=== PATIENT | female | born 1990 | race Caucasian/White ===

== ENCOUNTER 2022-05-30 12:23 | Outpatient (RCR) | payer OTHER, SELFPAY ==
[2022-05-31] MEDS: RHO(D) IMMUNE GLOBULIN 300 MCG/2 ML SYRINGE IM (12:23)
== END 2022-08-28 23:59 | disposition home or self-care (01) ==
LOC: ANHLAB 12:23
PROVIDERS: PCP Internal Medicine; Visit Provider Obstetrics & Gynecology
DX: O20.0 Threatened abortion (principal); Z29.13 Encounter for prophylactic Rho(D) immune globulin; O36.0190 Maternal care for anti-D [Rh] antibodies, unspecified trimester, not applicable or unspecified; Z3A.00 Weeks of gestation of pregnancy not specified
CPT/HCPCS: 36415; 85461; 86850; 86900; 86901; 90384; 96372; J2790

== ENCOUNTER → 2022-06-12 10:30 | Outpatient (CLI) | payer OTHER, SELFPAY ==
--- NOTE | ~2022-06-12 | US_ITS ---
EXAMINATION: US OB <= 14 weeks fetus DATE: 06/12/2022 11:52 INDICATION: First trimester viability assessment TECHNIQUE: Real-time pelvic transabdominal and transvaginal ultrasound was performed. COMPARISON: None. FINDINGS: The uterus measures 10.9 x 7.2 x 8.4 cm. There is an intrauterine gestational sac. A yolk sac is identified. heart motion is identified measuring 176 beats per minute (bpm) by M-mode Do ppler. The crown rump length measures 2.2 cm, which correlates with an estimated gestational ag e of 8 weeks and 6 day(s) (+/-) 6 day(s). The right ovary measures 3.9 x 3.4 x 3.8 cm. The left ovary measures 2.1 x 1.1 x 2.5 cm. There is no free fluid in the pelvis. IMPRESSION: 1. Live intrauterine with an estimated gestational age of 8 weeks and 6 day(s) (+/-) 6 day( s) and an estimated delivery date of 01/16/2023. Reviewed, dictated and finalized at location F. [employer] IMPRESSION: 1. Live intrauterine with an estimated gestational age of 8 weeks and 6 day(s) (+/-) 6 day(s) and an estimated delivery date of 01/16/2023.
== END ==
PROVIDERS: PCP Internal Medicine; Visit Provider Obstetrics & Gynecology
DX: O20.0 Threatened abortion (principal); Z3A.08 8 weeks gestation of pregnancy
CPT/HCPCS: 76801

== ENCOUNTER 2022-10-31 14:14 | Outpatient (RCR) | payer OTHER, SELFPAY ==
[2022-11-02] MEDS: RHO(D) IMMUNE GLOBULIN 300 MCG/2 ML SYRINGE IM (16:34)
== END 2023-01-29 23:59 | disposition home or self-care (01) ==
LOC: ANHLAB 14:14
PROVIDERS: PCP Internal Medicine; Visit Provider Obstetrics & Gynecology
DX: O36.0190 Maternal care for anti-D [Rh] antibodies, unspecified trimester, not applicable or unspecified (principal); Z3A.00 Weeks of gestation of pregnancy not specified
CPT/HCPCS: 36415; 85461; 86850; 86900; 86901; 90384; 96372; J2790

== ENCOUNTER 2023-01-15 18:23 | Outpatient (CLI) | payer OTHER, SELFPAY ==
--- NOTE | ~2023-01-15 | US_ITS ---
EXAMINATION: US OB limited w BPP DATE: 01/15/2023 21:40 CDT INDICATION: Evaluate amniotic fluid and well-being TECHNIQUE: Real-time transabdominal obstetric ultrasound. FINDINGS: No prior studies for comparison. There is a single living fetus in vertex presentation. The placenta is anterior. cardiac activ ity and movement is noted with a heart rate of 159 beats per minute. Biophysical profile: breathin of 2 movement: 2 of 2 tone: 2 of 2 Amniotic flud pocket: 2 of 2 Total score: 8 of 8 JARAD is normal measuring 12.6 cm. IMPRESSION: 1. Single living intrauterine in vertex presentation. 2: Total biophysical profile score of 8/8. 3: Normal JARAD measures 12.6 cm. Reviewed, dictated and finalized at location A.
== END 2023-01-15 21:40 | disposition home or self-care (01) ==
LOC: ANHOBOP 18:50 → ANHLDR 19:04
PROVIDERS: PCP Internal Medicine; Visit Provider Obstetrics & Gynecology
DX: O42.90 Premature rupture of membranes, unspecified as to length of time between rupture and onset of labor, unspecified weeks of gestation (principal); Z3A.00 Weeks of gestation of pregnancy not specified
CPT/HCPCS: 59025; 76815; 76819; 99199

== ENCOUNTER 2023-01-16 07:30 | Inpatient (IN) | payer OTHER, SELFPAY ==
[2023-01-16] VITALS (153 sets, daily range): BP systolic 68–156; BP diastolic 35–128; PULSE 25–190; RESP 18; TEMP 36.1–36.9; O2SAT 83–100; BMI 34.4
--- NOTE | 2023-01-16 07:30 | LDADM ---
This patient, Enid Bush, was admitted to Labor/Delivery/Recovery 106 on 01/16/23 at 07:30. Plans for labor, pain management and were discussed with patient. Patient/family oriented to hospital policies and general routines including ID bracelet, bed and alarms, visiting hours, pain management, procedures, bathroom and other care routines, personal items, smoking policy, room service/diet and guest tray routines, security routines, and visiting hours. Patient/Family are encouraged to report perceived risks to care and to ask questions if they do not understand what they are told or what they should do. See OBIX for further documentation.
[2023-01-16 08:32] LABS: Basophils Absolute Auto 0.1 K/mm3 (0.0-0.1); Basophils Percent Auto 0.5 % (0.2-1.2); Eosinophils Percent Auto 0.2 % (0-4.4); Hematocrit 40.4 % (37.0-47.0); Hemoglobin 13.6 g/dL (12.0-15.0); Immature Granulocyte Absolute 0.45 K/mm3 (0.00-0.031); Immature Granulocyte Percent A 2.7 % (0-0.5); Lymphocytes Absolute Auto 1.94 K/mm3 (0.9-3.2); Lymphocytes Percent Auto 11.7 % (18.3-44.2); Mean Corpuscular HGB Conc 33.7 g/dl (32-36); Mean Corpuscular Hemoglobin 30.3 pg (26-34); Mean Platelet Volume 10.6 fl (7.4-10.4); Monocytes Absolute Auto 0.6 K/mm3 (0.1-0.6); Monocytes Percent Auto 3.5 % (2.6-8.5); Neutrophils Absolute Auto 13.4 K/mm3 (1.3-6.7); Neutrophils Percent Auto 81.4 % (45.5-73.1); Platelet Count Result 253 k/mm3 (150-375); Red Blood Count 4.49 M/mm3 (4.2-5.4); Red Cell Distribution Width 13.2 % (11.5-14.5); White Blood Count 16.5 K/mm3 (4.5-10.0)
[2023-01-16] MEDS: LACTATED RINGERS 1,000 ML 125 ML IV CONT ×2 (08:33→09:36)
--- NOTE | 2023-01-16 09:16 | WPDANESEPP ---
Anes - Eval Pre Procedure Procedure: Labor Epidural Date/Time: 01/16/23 09:16 Surgeon: Lilian Preop Diagnosis: Labor Pain Pre Op Diagnosis: iol Patient Data Age: 32 Gender: F Height: 1.78 m Weight: 109 kg Last Vital Signs Pulse 82 01/16/23 08:45 BP 124/75 01/16/23 08:45 Allergies Allergy/AdvReac Type Severity Reaction Status Date / Time No Known Allergies Allergy Verified 05/31/22 12:23 Home Medications Medication Instructions Recorded Confirmed Type levothyroxine 150 mcg tablet 150 mcg PO DAILY 01/01/23 01/01/23 History prenat.vits,elaine,[id number] 1 tablet 01/01/23 History Laboratory Tests 01/16/23 08:21 WBC 16.5 H K/mm3 (4.5-10.0) RBC 4.49 M/mm3 (4.2-5.4) Hgb 13.6 g/dL (12.0-15.0) Hct 40.4 % (37.0-47.0) MCV 90.0 fl (80-100) MCH 30.3 pg (26-34) MCHC 33.7 g/dl (32-36) RDW 13.2 % (11.5-14.5) Plt Count 253 k/mm3 (150-375) MPV 10.6 H fl (7.4-10.4) Immature Gran % (Auto) 2.7 H % (0-0.5) Neut % (Auto) 81.4 H % (45.5-73.1) Lymph % (Auto) 11.7 L % (18.3-44.2) [place] % (Auto) 3.5 % (2.6-8.5) Eos % (Auto) 0.2 % (0-4.4) Baso % (Auto) 0.5 % (0.2-1.2) Lymph # (Auto) 1.94 K/mm3 (0.9-3.2) [place] # (Auto) 0.6 K/mm3 (0.1-0.6) Eos # (Auto) 0.0 K/mm3 (0-0.3) Baso # (Auto) 0.1 K/mm3 (0.0-0.1) Abs Immat Gran (auto) 0.45 H K/mm3 (0.00-0.031) Absolute Neuts (auto) 13.4 H K/mm3 (1.3-6.7) Absolute Nucleated RBC 0.0 K/mm3 (0.0-0.012) Nucleated RBC % 0.0 % (0.0-0.2) RPR Pending HIV 1&2 Ab/P24 Ag 4thGn Pending : gestational age (HARSHAD 01/23/23, ) HCG: negative Patient hx anesthesia problems: none Family hx anesthesia problems: none Results Review: All pre-operative results and documents have been reviewed as part of the pre-operative evaluation. [facility] Family History Family History Other Patient denies significant medical history Social History Social History Smoking status: Never smoker Substance use: never Lack of Transportation: No Lack of Food: Never True Current Housing: I Have Housing Concerned About Future Housing: No Difficulty Paying Gas/Electric Bills: No Difficulty Paying for Meds: No Currently Unemployed: No Education: Master's Degree or Higher Difficulty w/ Childcare or Family Care: No Spiritual care concerns: No Exam Day of Procedure 01/16/23 09:16 Patient weight: normal Heart: regular rate and rhythm Lungs: normal air movement Airway: Mallampati scale class II Neurological: alert and oriented
[2023-01-16 09:24] LABS: HIV 1/2 Ab P24 Ag Result Negative (Negative)
[2023-01-16] MEDS: OXYTOCIN 30 UNITS/NS 500 ML 30 UNITS/500 ML BAG IV CONT (10:44)
--- NOTE | 2023-01-16 11:47 | PM.IMHP ---
H&P: HPI History of Present Illness Date/Time: 01/16/23 11:47 Chief Complaint: Labor at term Narrative: this is a 32-year-old 2 para 0 whose last menstrual period was 04/16/2022, EDC is 01/21/2023, confirmed by 6 week ultrasound presents at 39+ weeks gestation in active labor. She was seen last night with some spotting following an exam had an ultrasound with the 01/28 biophysical profile and normal fluid. She came in this morning at 4cm. She spontaneously ruptured on admission. had been uncomplicated with negative group B strep she is hypothyroid. She is euthyroid on levothyroxine. She is Rh negative and received RhoGAM at 28 weeks [facility] Family History Family History Other Patient denies significant medical history Social History Social History Smoking status: Never smoker Substance use: never Lack of Transportation: No Lack of Food: Never True Current Housing: I Have Housing Concerned About Future Housing: No Difficulty Paying Gas/Electric Bills: No Difficulty Paying for Meds: No Currently Unemployed: No Education: Master's Degree or Higher Difficulty w/ Childcare or Family Care: No Spiritual care concerns: No Meds Home Medications and Allergies Home Medications Medication Instructions Recorded Confirmed Type levothyroxine 150 mcg tablet 150 mcg PO DAILY 01/01/23 01/01/23 History prenat.vits,elaine,[id number]-[id number]-vmpwt 1 tablet 01/01/23 History Allergies Allergy/AdvReac Type Severity Reaction Status Date / Time No Known Allergies Allergy Verified 05/31/22 12:23 Vital Signs Vital Signs - 24 hr 01/16/23 08:00 01/16/23 08:32 01/16/23 08:45 Temperature Pulse Rate 93 100 82 Blood Pressure 119/77 116/79 124/75 Pulse Oximetry 01/16/23 09:18 01/16/23 09:19 01/16/23 09:21 Temperature Pulse Rate 98 90 Blood Pressure 145/121 H 146/83 H Pulse Oximetry 99 01/16/23 09:23 01/16/23 09:26 01/16/23 09:28 Temperature Pulse Rate 103 H 90 Blood Pressure 122/72 127/82 Pulse Oximetry 98 98 01/16/23 09:30 01/16/23 09:33 01/16/23 09:36 Temperature Pulse Rate 91 91 95 Blood Pressure 118/98 H 133/79 124/70 Pulse Oximetry 98 01/16/23 09:38 01/16/23 09:39 01/16/23 09:42 Temperature Pulse Rate 102 H 120 H Blood Pressure 108/72 132/69 Pulse Oximetry 98 01/16/23 09:43 01/16/23 09:45 01/16/23 09:48 Temperature Pulse Rate 108 H 93 Blood Pressure 121/73 117/74 Pulse Oximetry 98 98 01/16/23 09:51 01/16/23 09:53 01/16/23 09:54 Temperature Pulse Rate 85 111 H Blood Pressure 124/74 109/66 Pulse Oximetry 98 01/16/23 09:57 01/16/23 09:58 01/16/23 10:00 Temperature Pulse Rate 71 147 H Blood Pressure 127/65 120/75 Pulse Oximetry 98 01/16/23 10:03 01/16/23 10:08 01/16/23 10:13 Temperature Pulse Rate Blood Pressure Pulse Oximetry 98 97 98 01/16/23 10:15 01/16/23 10:18 01/16/23 10:23 Temperature Pulse Rate 75 Blood Pressure 116/60 Pulse Oximetry 97 98 01/16/23 10:28 01/16/23 10:30 01/16/23 10:33 Temperature Pulse Rate 81 Blood Pressure 110/58 L Pulse Oximetry 97 98 01/16/23 10:38 01/16/23 10:43 01/16/23 10:45 Temperature 96.9 F L Pulse Rate Blood Pressure 120/80 Pulse Oximetry 99 99 01/16/23 10:48 01/16/23 10:53 01/16/23 10:58 Temperature Pulse Rate Blood Pressure Pulse Oximetry 99 99 99 01/16/23 11:00 01/16/23 11:03 01/16/23 11:08 Temperature Pulse Rate 80 Blood Pressure 109/54 L Pulse Oximetry 99 98 01/16/23 11:13 01/16/23 11:15 01/16/23 11:18 Temperature Pulse Rate 79 Blood Pressure 104/59 L Pulse Oximetry 96 97 01/16/23 11:23 01/16/23 11:28 01/16/23 11:30 Temperature Pulse Rate 69 Blood Pressure 112/56 L Pulse Oximetry 96 96 01/16/23 11:33
--- NOTE | 2023-01-16 16:28 | PM.OBPRVD ---
OB - Delivery Note Procedure Delivery date: 01/16/23 Induction method: None Delivery monitor: External FHT Route of delivery: Episiotomy description: None Laceration Description: Perineal - 2nd Degree Quantitative Blood Loss (ml): 160 Anesthesia type: Epidural Disposition: Floor Baby Date of : 01/16/23 Time of : 16:09 Weeks of gestation at delivery: 39 Infant gender: Male presentation: vertex position: Right Occiput Anterior Placenta delivery description: Spontaneous Cord Vessel Description: 3 Vessels score one minute: 8 score five minutes: 9
--- NOTE | 2023-01-16 16:30 | PM.DS ---
DS: Admitting Diagnosis Discharge Date 01/18/2023 Admitting Diagnosis term DS: Discharge Diagnosis Discharge Diagnosis (1) Term : Code(s): Z34.90 - Encounter for supervision of normal , unspecified, unspecified trimester Status: Acute DS: Summary Hospital Course Reason for hospitalization: patient was admitted in active labor at term Hospital Course: patient underwent spontaneous vaginal delivery on 01/09. Her hospital course. Was unremarkable. She remained afebrile. She was up, voiding without difficulty, ambulating, generally without complaints. . Time Spent with Patient Time attestation: Total time spent providing and/or coordinating discharge services: Exam Const: General: cooperative, healthy appearing and comfortable Nutritional Appearance: average body habitus Orientation/consciousness: oriented to person, oriented to place and oriented to time Resp: Effort & Inspection: normal respiratory effort Cardio: Rate: regular rate Rhythm: regular rhythm Heart sounds: S1 normal heart sound present and S2 normal heart sound present GI: Inspection: normal to inspection ( Fundus firm below the umbilicus) DS: Data Data Completed and Pending Labs on day of discharge: Labs from last 24 hours 01/16/23 08:21 WBC 16.5 H RBC 4.49 Hgb 13.6 Hct 40.4 MCV 90.0 MCH 30.3 MCHC 33.7 RDW 13.2 Plt Count 253 MPV 10.6 H Immature Gran % (Auto) 2.7 H Neut % (Auto) 81.4 H Lymph % (Auto) 11.7 L [place] % (Auto) 3.5 Eos % (Auto) 0.2 Baso % (Auto) 0.5 Lymph # (Auto) 1.94 [place] # (Auto) 0.6 Eos # (Auto) 0.0 Baso # (Auto) 0.1 Abs Immat Gran (auto) 0.45 H Absolute Neuts (auto) 13.4 H Absolute Nucleated RBC 0.0 Nucleated RBC % 0.0 RPR Pending HIV 1&2 Ab/P24 Ag 4thGn Negative Blood Type A Negative Antibody Screen Positive Antibody Identification Passive Due to RH Imm Glob Antigen Identification Cancelled JONNY, IgG Interpret Not Performed JONNY, Poly Interpret Neg JONNY, Complement Interp Not Performed Discharge Plan Discharge Attending physician on discharge: Mateus Cheney Discharging Clinician: Mateus Cheney Patient Disposition: Home, Self-Care Activity: may shower and pelvic rest Diet: heart healthy Wound Care Instructions: follow printed instructions Patient Instructions: Antibiotic Form Stand Alone Forms: General Discharge Information Follow-up/Referrals: Mateus Cheney MD [Physician] - Zoltan Quintana MD [Physician] - Discharge Medications: Continued levothyroxine 150 mcg Tablet 150 mcg PO DAILY #2 Tablet 1 tablet Date of admission: 01/16/23 07:30 Primary Care Provider: Xiomara,Rylee Villegas Admitting Provider: Zoltan Quintana Attending physician on admission: Zoltan Quintana Condition: Stable
[2023-01-16] MEDS: OXYTOCIN 30 UNITS/NS 500 ML 30 UNITS/500 ML BAG 125 UNITS IV CONT (16:48)
[2023-01-16] MEDS: IBUPROFEN 600 MG TABLET PO (19:08)
[2023-01-16] MEDS: WITCH HAZEL 40 PADS 1 PAD TOPICAL (19:24)
[2023-01-16] MEDS: BENZOCAINE 20% AER SPR (*SP) 56 GM CAN 1 SPRAY TOPICAL (19:24)
--- NOTE | 2023-01-16 19:41 | ADMGEN ---
This patient, Enid Bush, was admitted to OB 2nd Floor Room 292-00. Patient/family oriented to hospital policies and general routines including ID bracelet, bed and alarms, visiting hours, pain management, procedures, bathroom and other care routines, personal items, smoking policy, room service/diet, and visiting hours. Information on how to activate the Rapid Response Team has been discussed. Patient/Family are encouraged to report perceived risks to care and to ask questions if they do not understand what they are told or what they should do.
[2023-01-17 00:11] VITALS: BP 126/75; PULSE 75; RESP 18; TEMP 36.7
[2023-01-17] MEDS: IBUPROFEN 600 MG TABLET PO ×2 (04:15→13:40)
[2023-01-17 04:29] VITALS: BP 129/68; PULSE 78; RESP 18; TEMP 36.8
[2023-01-17 05:44] LABS: Hematocrit 36.4 % (37.0-47.0); Hemoglobin 11.9 g/dL (12.0-15.0)
[2023-01-17] MEDS: DOCUSATE SODIUM 100 MG CAPSULE PO (07:58)
[2023-01-17 08:35] VITALS: BP 126/75; PULSE 78; RESP 18; TEMP 36.6; O2SAT 99
--- NOTE | 2023-01-17 09:33 | PC.NURSE ---
[phone] Introductions were made, then consulted with patient to assess needs related to . Mother led the conversation with her?plans to feed?her infant and the?experience so far. Resources provided for inpatient and outpatient services with the mom/baby guide and name written on the white board. Encouraged [id number] and stimulation with infant to offer soon as infant is showing early feeding cues. Mother voiced understanding of information and will call if there is a request for assistance.
--- NOTE | 2023-01-17 09:34 | PM.OBPNVD ---
OB - PN: Subj Subjective Date/time seen: 01/17/23 09:34 Patient comments: no complaints and pain well controlled baby status: doing well OB - PN: Obj Data Labs 01/17/23 04:08 Labs: Laboratory Results - last 24 hr 01/16/23 01/17/23 08:21 04:08 Hgb 11.9 L Hct 36.4 L Blood Type A Negative Antibody Screen Positive Antibody Identification Passive Due to RH Imm Glob Antigen Identification Cancelled JONNY, IgG Interpret Not Performed JONNY, Poly Interpret Neg JONNY, Complement Interp Not Performed OB - PN A/P Plan day: 1 Plan: routine care Time Spent With Patient Time: Total time spent is greater than 50% in coordination of care (as documented) at patient's floor/unit and/or counseling patient: Time with patient: less than 15 minutes Exam Const: General: cooperative, healthy appearing and comfortable Nutritional Appearance: average body habitus Orientation/consciousness: oriented to person, oriented to place and oriented to time HENMT: Head: normal to inspection Resp: Effort & Inspection: normal respiratory effort Cardio: Rate: regular rate Rhythm: regular rhythm Heart sounds: S1 normal heart sound present and S2 normal heart sound present GI: Inspection: normal to inspection (fundus firm)
--- NOTE | 2023-01-17 11:45 | PC.NURSE ---
[phone] Consulted with patient to assess needs related to after call requested. Mother led conversation with her experience with feeding baby so far. Mother works well with her infant. Reviewed working with , supporting breast and how to protect the nipples with an optimal deep latch, good positioning, and good hand washing. Encouraged understanding the benefits of skin to skin, responding to feeding cues, frequencies of feeding 8-12 times in 24 hours (approximately 2-3 hours), duration of feedings, milk production, intake/output feeding sheet and signs of adequate intake encouraging swallowing at the breast. Reviewed positioning and alignment, supporting breast, off-centered (asymmetrical latch) and leading with the chin with big, open, wide gape. latched optimally to the left breast in cross cradle position. Education given to mother of how to visualize suck/swallow and listening for drinking at the breast. was able to maintain latch without discomfort to mother. Mother encouraged to keep actively after circumcision. Nipple care reviewed with optimal latch, good positioning and using clean hands when feeding her and touching her breast. Mother is confident with latching her infant to the right breast independently. Resources used to facilitate learning were used from the tool, mom and baby guide. Mother voiced understanding of the education shared, to call for assistance if the does not latch or if there is discomfort with .
[2023-01-17 12:14] VITALS: BP 123/71; PULSE 74; RESP 16; TEMP 36.8; O2SAT 99
[2023-01-17 17:06] LABS: Rapid Plasma Reagin Non-Reactive (NonReactive)
[2023-01-17 21:10] VITALS: BP 123/70; PULSE 83; RESP 18; TEMP 36.7; O2SAT 98
--- NOTE | 2023-01-18 03:51 | PM.OBPNVD ---
OB - PN: Subj Subjective Date/time seen: 01/18/23 03:51 Patient comments: no complaints and pain well controlled baby status: doing well and nursing well OB - PN: Obj Data Labs 01/17/23 04:08 Labs: Laboratory Results - last 24 hr 01/16/23 01/17/23 08:21 04:08 Hgb 11.9 L Hct 36.4 L RPR Non-reactive OB - PN A/P Plan day: 2 Plan: routine care, discharge home and follow up 6 weeks Time Spent With Patient Time: Total time spent is greater than 50% in coordination of care (as documented) at patient's floor/unit and/or counseling patient: Time with patient: less than 15 minutes Exam Const: General: cooperative, healthy appearing and comfortable Nutritional Appearance: average body habitus Orientation/consciousness: oriented to person, oriented to place and oriented to time HENMT: Head: normal to inspection Resp: Effort & Inspection: normal respiratory effort Cardio: Rate: regular rate Rhythm: regular rhythm Heart sounds: S1 normal heart sound present and S2 normal heart sound present GI: Inspection: normal to inspection ( fundus firm below the umbilicus)
[2023-01-18 08:00] VITALS: BP 127/74; PULSE 92; RESP 16; TEMP 36.7; O2SAT 100
[2023-01-18] MEDS: DOCUSATE SODIUM 100 MG CAPSULE PO (10:03)
--- NOTE | 2023-01-18 11:08 | PC.NURSE ---
1000-Patient viewed the discharge video Mother & Baby Care, The First Two Weeks . Patient was given the opportunity and encouraged to ask questions. Patient verbalized understanding of information shared and has been given the mother/baby guide for home reference.
[2023-01-20 11:16] VITALS: BP 117/86; PULSE 78; RESP 18; TEMP 37.1; O2SAT 100
== END 2023-01-18 11:12 | disposition home or self-care (01) | DRG 807 ==
LOC: ANHLDR 16:33 → ANHOB2 01-18 09:51 → ANHLDR 01-20 13:58 → ANHOB2 01-20 13:58
PROVIDERS: Admitting Provider Obstetrics & Gynecology; PCP Internal Medicine; Visit Provider Obstetrics & Gynecology
DX: O99.284 Endocrine, nutritional and metabolic diseases complicating childbirth (principal); Z37.0 Single live birth; Z3A.39 39 weeks gestation of pregnancy; E03.9 Hypothyroidism, unspecified; O70.1 Second degree perineal laceration during delivery; O26.893 Other specified pregnancy related conditions, third trimester; Z67.91 Unspecified blood type, Rh negative
CPT/HCPCS: 36415; 85014; 85018; 85025; 86592; 86703; 86850; 86880; 86900; 86901; A9270; G0432; J2590; J2795; J7120

== ENCOUNTER 2024-10-29 15:26 | Outpatient (RCR) | payer OTHER, SELFPAY ==
--- OUTSIDE RECORDS SUMMARY | 2024-10-29 15:31 | XMS_ITS | Clinical Summary ---
Author Organization [facility] Address [facility] [place] [address] Care Team Providers Care Assembly Detailer Name Role Phone Rylee Mesa MD Primary Care Provider [phone] Allergies No known active allergies Medications FLUoxetine (PROZAC) 20 MG tablet Take 1 tablet (20 mg total) by mouth daily. 4 Active levothyroxine (SYNTHROID) 150 MCG tabletIndications:Hy pothyroidism, postradioiodine therapy Take 1 tablet (150 mcg total) by mouth daily. 30 tablet 5 4 Active Active Problems Problem Noted Date Diagnosed Date Hypothyroidism, postradioiodine therapy 03/28/20 17 History of Graves' disease 03/22/2016 Comments Yes Encounters Date Type Department Care Team Description 10/26/2024 3:10 PM CDT - 10/26/2024 11:59 PM CDT Hospital Encounter [facility] [address] [place] [address] Melody Cisneros MD Arrived Discharge Disposition: Home or Self Care (Routine Discharge) 10/26/2024 Results Follow-Up [facility] Diabetes and Endocrinology - [address] [phone] Melody Cisneros MD THYROID STIM HORMONE TSH 10/26/2024 Travel 10/25/2024 Telephone [facility] Diabetes [facility] Endocrinology [address] [phone] Melody Cisneros MD Lab Order from Last 3 Months Immunizations Immunization Administration Dates Next Due MODERNA COVID-19 (12+) MRNA, LNP-S, PF, 100 MCG/ 0.5 ML DOSE 08/11/2020,07/14/2020 Family History Medical History Relation Comments Thyroid Disease Maternal Grandmother Goiter Mother Relation Status Comments Maternal Grandmother Mother Social History Tobacco Use Types Packs/Day Years Used Date Smoking Tobacco: Never Smokeless Tobacco: Never Alcohol Use Standard Drinks/Week Comments Yes 0 (1 standard drink = 0.6 oz pur e alcohol) PHQ-2 Answer Date Recorded PHQ-2 Score - If the patient scores above 3, please move on to questions 3-9 0 02/16/2021 Comments Yes Sex and Gender Information Value Date Recorded Sex Assigned at Female 07/08/2024 3:12 PM [employer] Legal Sex Female 7:25 PM CDT Gender Identity Not on file Sexual Orientation Not on file Last Filed Vital Signs Vital Sign Reading Time Taken Comments Blood Pressure 108/74 02/07/2023 10:55 AM CDT Pulse 76 02/07/2023 10:55 AM CDT Temperature 36.5 C (97.7 F) 02/07/2023 10:55 AM CDT Respiratory Rate 16 06/01/2021 9:58 AM [employer] Oxygen Saturation 98% 02/07/2023 10:55 AM CDT Inhaled Oxygen Concentration - - Weight 93.4 kg (206 lb) 02/07/2023 10:55 AM CDT Height 175.3 cm (5' 9) 02/07/2023 10:55 AM CDT Body Mass Index 30.42 02/07/2023 10:55 AM CDT Plan of Treatment Health Maintenance Due Date Last Done Comments Cervical Cancer Screening Pap Smear (Age 30 to 64) Every 3 Years 1990 Annual Physical 1993 HPV Vaccines (3 - 3-dose series) 11/21/2008 08/29/2008, 04/13/2008 Hepatitis C 2008 DTaP, Tdap and Td Vaccines (1 - Tdap) 2009 10/10/1995, 06/09/1992, 06/11/1991, Additional history exists Hepatitis B Vaccines (1 of 3 - 19+ 3-dose series) 2009 Cervical Cancer Screening Pap with HPV Testing (Age 30 to 64) Every 5 Years 2020 Cervical Cancer Screening with HPV 2020 COVID-19 Vaccine ( season) 2024 08/11/2020, 07/14/2020 PHQ-2 (Physician [place]) 06/23/2024 RSV Immunization or 60+ Years (1 - 1-dose 75+ series) 2065 Meningococcal B Vaccine Aged Out No l onger eligible based on patient's age to complete this topic Meningococcal Vaccine Aged Out No nadia angela eligible based on patient's age to complete this topic Pneumococcal Vaccine: Pediatrics (0 to 5 Years) and At-Risk Patients (6 to 49 Years) Aged Out No longer eligible based on patient's age to complete this topic RSV Immunizations Under 20 Months Aged Out No longer eligible based on patient's age to complete this topic Procedures Procedure Name Priority Date/Time Associated Diagnosis Comments THYROID STIM HORMONE TSH Routine 10/26/2024 3:13 PM CDT Hypothyroidism, postradioiodine therapy from Last 3 Months Results * THYROID STIM HORMONE TSH (10/26/2024 3:13 PM CDT) TSH 2.475 0.358 - 3.74 uIU/ML 10/26/2024 4:37 PM CDT [facility] Comment: HIGH DOSES OF BIOTIN MAY INTERFERE WITH THIS TEST RESULT. CORRELATION TO CLINICAL HISTORY AND PRESENTATION RECOMMENDED. 10/26/2024 3:13 PM CDT us Melody Cisneros MD LABORATORY Final Result [facility] [address] [place] [address], [place] [phone] from Last 3 Months Insurance [employer] Advance Directives * Full Code (Latest Code Status on File) Date Activated Date Inactivated Comments 06/01/2021 8:28 AM 06/01/2021 12:26 PM Care Teams Assembly Detailer Relationship Specialty [place] [address] [place] [address] PCP - General INTERNAL MEDICINE 01/14/20
[2024-11-01] MEDS: RHO(D) IMMUNE GLOBULIN 300 MCG/2 ML SYRINGE IM (15:55)
== END 2025-01-27 23:59 | disposition home or self-care (01) ==
LOC: ANHLAB 15:26
PROVIDERS: PCP Internal Medicine; Visit Provider Obstetrics & Gynecology
DX: Z29.13 Encounter for prophylactic Rho(D) immune globulin (principal); O36.0190 Maternal care for anti-D [Rh] antibodies, unspecified trimester, not applicable or unspecified; Z3A.00 Weeks of gestation of pregnancy not specified
CPT/HCPCS: 36415; 85461; 86850; 86900; 86901; 90384; 96372; J2790

== ENCOUNTER 2025-01-16 16:55 | Inpatient (IN) | payer OTHER, SELFPAY ==
[2025-01-16] VITALS (36 sets, daily range): BP systolic 98–128; BP diastolic 35–78; PULSE 56–232; RESP 16; TEMP 36.5–36.6; O2SAT 81–100
--- OUTSIDE RECORDS SUMMARY | 2025-01-16 17:14 | XMS_ITS | Clinical Summary ---
Author Organization [facility] Address [facility] [place] [address] Care Team Providers Care Stage Settings Painter Name Role Phone Rylee Mesa MD Primary Care Provider +1- [phone] Allergies No known active allergies Medications FLUoxetine (PROZAC) 20 MG tablet Take 1 tablet (20 mg total) by mouth daily. 4 Active levothyroxine (SYNTHROID) 125 MCG tabletIndications:H ypothyroidism, postradioiodine therapy Take 1 tablet (125 mcg total) by mouth every morning. 30 tablet 3 5 Active levothyroxine (SYNTHROID) 175 MCG tabletIndications:H ypothyroidism, postradioiodine therapy Take 1 tablet (175 mcg total) by mouth every morning. 30 tablet 1 5 01/07/20 25 Discontin ued(Reord er) Active Problems Problem Noted Date Diagnosed Date Hypothyroidism, postradioiodine therapy 03/28/20 17 History of Graves' disease 03/22/2016 Comments Yes Encounters Date Type Department Care Team Description 01/05/2025 MyChart Message Enc [facility] Diabetes and Endocrinology - [address] [address] Melody Cisneros MD Levothyroxine 125 Refill 12/25/[address] [place] [address] Debra Rodrigues FNP Error 12/07/2024 4:13 PM CDT - 12/07/2024 11:59 PM CDT Hospital Encounter [facility] [address] [place] [address] Melody Cisneros MD Discharge Disposition: Home or Self Care (Routine Discharge) 12/07/2024 Results Follow-Up [facility] - [address] [address] Melody Cisneros MD TSH W/REFLEX, THYROXINE, FREE (FT4) 12/07/2024 Travel 10/26/2024 3:10 PM CDT - 10/26/2024 11:59 PM CDT Hospital Encounter [facility] [address] [place] [address] Melody Cisneros MD Discharge Disposition: Home or Self Care (Routine Discharge) 10/26/2024 Results Follow-Up [facility] - [address] [address] Melody Cisneros MD THYROID STIM HORMONE TSH 10/26/2024 Travel 10/25/2024 Telephone [facility] [address] [address] Melody Cisneros MD Lab Order from Last [...] Sex Assigned at Female 07/08/2024 3:12 PM MEDICAL PHOTOGRAPHER Legal Sex Female 7:25 PM CDT Gender Identity Not on file Sexual Orientation Not on file Last Filed Vital Signs Vital Sign Reading Time Taken Comments Blood Pressure 108/74 02/07/2023 10:55 AM CDT Pulse 76 02/07/2023 10:55 AM CDT Temperature 36.5 C (97.7 F) 02/07/2023 10:55 AM CDT Respiratory Rate 16 06/01/2021 9:58 AM MEDICAL PHOTOGRAPHER Oxygen Saturation 98% 02/07/2023 10:55 AM CDT Inhaled Oxygen Concentration - - Weight 93.4 kg (206 lb) 02/07/2023 10:55 AM CDT Height 175.3 cm (5' 9) 02/07/2023 10:55 AM CDT Body Mass Index 30.42 02/07/2023 10:55 AM CDT Plan of Treatment Upcoming Encounters Date Type Department Care Team (Late st Contact Info) Description 02/07/2025 9:40 AM CDT Office Visit [facility] [address] [place], [place] [id number] Debra Rodrigues [facility] [address] [place] [address] Health Maintenance Due Date Last Done Comments [...] Cancer Screening with HPV 2020 COVID-19 Vaccine (3 - 2023- season) 2024 08/11/2020, 07/14/2020 PHQ-2 (Physician [place]) 06/23/2024 RSV Immunization or 60+ Years (1 [...] Procedure Name Priority Date/Time Associated Diagnosis Comments THYROXINE, FREE (FT4) Routine 12/07/2024 4:15 PM CDT TSH W/REFLEX Routine 12/07/2024 4:15 PM CDT Hypothyroidism during , antepartum (HHS/HCC) THYROID STIM HORMONE TSH Routine 10/26/2024 3:13 PM CDT Hypothyroidism, postradioiodine therapy from Last 3 Months Results * (ABNORMAL) TSH W/REFLEX (12/07/2024 4:15 PM CDT) TSH 5.841(H) 0.358 - 3.74 uIU/ML 12/07/2024 5:16 PM CDT [facility] Comment: HIGH DOSES OF BIOTIN MAY INTERFERE WITH THIS TEST RESULT. CORRELATION TO CLINICAL HISTORY AND PRESENTATION RECOMMENDED. 12/07/2024 4:15 PM CDT us Melody Cisneros MD LABORATORY Final Result [facility] [address] [place] [address], * THYROXINE, FREE (FT4) (12/07/2024 4:15 PM CDT) FREE T4 1.01 0.76 - 1.46 NG/DL 12/07/2024 6:05 PM CDT [facility] 12/07/2024 4:15 PM CDT Melody Cisneros MD LABORATORY Final Result Performing Organization Address City/[facility]/ZIP Co de Phone Number [facility] [address] [place] [address], [place] [phone] * THYROID STIM HORMONE TSH (10/26/2024 3:13 PM CDT) TSH 2.475 0.358 - 3.74 uIU/ML 10/26/2024 4:37 PM CDT [facility] Comment: HIGH DOSES OF BIOTIN MAY INTERFERE WITH THIS TEST RESULT. CORRELATION TO CLINICAL HISTORY AND PRESENTATION RECOMMENDED. 10/26/2024 3:13 PM CDT Melody Cisneros MD LABORATORY Final Result Performing Organization Address [facility] Co de Phone Number [facility] [address] [place] [address], [place] [phone] from Last 3 Months Insurance [employer] Advance Directives * Full Code (Latest Code Status on File) Date Activated Date Inactivated Comments 06/01/2021 8:28 AM 06/01/2021 12:26 PM Care Teams Stage Settings Painter Relationship Specialty [place] [address] [place] [address] PCP - General INTERNAL MEDICINE 01/14/20
--- OUTSIDE RECORDS SUMMARY | 2025-01-16 17:14 | XMS_ITS | Data Portability ---
Author Organization [facility], [address] [facility] ([place]) Address [address] [place] [address] Care Team Providers Care Ep Technologist Name Role Phone RONALD REYES Primary Care Provider Assessment Encounter Date Assessment Date Assessment LastModified by Organization Details LastModified Time 12/13/2024 12/13/2024 1. She is given Tdap booster. Vitals were good today. 2. Form was filled out and a copy For the records. 3. 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 4. She has establish care appointment with new PCP in a couple weeks. We can get records transferred upon request. Patient verbalizes understanding and agreement with the treatment plan. Patient will continue to follow-up for acute health issues and routine medication checks. I personally spent a total of 20 minutes on the patient on this date of service including both hhza-ij-qarg and hjb-lncc-gf-face time excluding any separately reportable services. [email or web address] Not available 12/15/2024 10:05:30 Plan of Treatment Reminders Order Date Submit Date Provider Last Modified By Organization Details Last Modified Time Details Appointments None record ed. Lab None record ed. Referral None record ed. Procedures None record ed. Surgeries None record ed. Imaging None record ed. Medication Orders None record ed. Patient TargetsNo targets recorded. Patient InstructionsNo instructions recorded. Reason for Referral None Reported. Problems Name Problem SNOMED Code Status Onset Date Resolution Date Notes Provider Name and Address Organization Details Recorded Time Third trimester 07647778 Active 2024 Lalo Buck PA-C [address] [place] [address], [phone], [facility] 12:02:43 Graves' disease 085152584 Active 2024 Lalo Buck PA-C [address] [place] [address], [phone], [facility] 12:02:58 Acquired hypothyroid ism 306506061 Active 2024 Lalo Buck PA-C [address] [place] [address], [phone], [facility] 12:03:07 Problem Notes None recorded. Procedures Surgical History Date Name Laterality Status Provider Name and Address Organization Details Recorded Time dilation and curettage of uterus completed Lalo Buck PA-C [address] [place] [address], [phone], [facility] 12/13/2024 12:01:49 tonsillectomy and adenoidectomy completed Lalo Buck PA-C [address] [place] [address], [phone], [facility] 12/13/2024 12:02:06 tooth extraction completed Diana Buck PA-C [address] [place] [address], [phone] 12/13/2024 12:02:16 Imaging Results None recorded. Procedure Notes None recorded. Medical Equipment None Reported. Medications Name Sig Start Date Stop Date Status Note LastModified by Organization Details LastModified Time levothyroxine 175 mcg tablet Take 1 tablet every day by oral route. active Not Available Not Available No t Available ondansetron HCl 4 mg tablet TAKE 1 TABLET BY MOUTH EVERY 6 HOURS NEEDED FOR NAUSEA 12/13 completed Not Available Not Available Not Available levothyroxine 125 mcg tablet TAKE 1 TABLET BY MOUTH DAILY 12/13 completed Not Available Not Available Not Available triamcinolone acetonide 0.1 % topical ointment APPLY TO RASH TWICE DAILY FOR 2 WEEKS 12/13 completed Not Available Not Available Not Available sertraline 50 mg tablet TAKE 1 TABLET BY MOUTH DAILY 12/13 completed Not Available Not Available Not Available Vitals Date Recorded Body height Body temperature Heart rate Oxygen saturation Oxygen saturation in Arterial blood by Pulse oximetry Body mass index (BMI) Body weight Systolic And Diastolic Provider Name and Address Organization Details Last Updated DateTime 175.26 cm 97 [degF] 98 /min 98 % 98 % 33.2 kg/m2 146973. 28 g 112/68 mm[Hg] Tiara Nath [facility] 11:22:18 Social History None recorded. Functional Status None recorded. Mental Status None recorded. Family History Relationship Description Onset Age of this Age Resolved Age Notes LastModified by Organization Details LastModified Time Mother Goiter [email or web address] Not available 12/13/2024 12:01:18 Maternal Grandmother Hyperthyroid ism [email or web address] Not available 2024 12:01:27 Medical History No medical history recorded. Gynecological HistoryNo gynecological history recorded. Obstetrics History GPAL:G 0 P 0 0 0 0 Immunizations Vaccine Type Date Status Note Provider Nam e and Address Organization Details Recorded Time COVID-19, mRNA, LNP-S, PF, 100 mcg/0.5mL dose or 50 mcg/0.25mL dose 07/14/2020 completed Tiara Nath [facility] 12/13/2024 11:22:45 COVID-19, mRNA, LNP-S, PF, 100 mcg/0.5mL dose or 50 mcg/0.25mL dose 08/11/2020 ashok Nath [facility] 12/13/2024 11:22:45 Tdap 12/13/2024 completed Lalo Buck PA-C [facility] [address], [address], [facility] 12/13/2024 12:07:02 Past Encounters Encounter ID Performer Location Encounter Start Date Encounter Closed Date Diagnosis/Indication Diagnosis SNOMED-CT Code Diagnosis ICD10 Code Diagnosis Note [id number] Shady Buck PA-C [facility] ([place]) [address] [place] [place] [address] 12/13/2024 10:54:26 12/20/2024 17:33:33 [id number] Shady Buck PA-C [facility] ([place]) [address] [facility] [place] [address] 12/13/2024 11:11:00 12/13/2024 12:44:59 Vaccination needed 3486044780 42926 Z23 Third trim luis 60405384 Z34.93 Preventive procedure 169 752509 Z00.00 Health Concerns Section Related Observation LastModified by Organization Detai ls LastModified Time None Recorded Concern Status LastModified by Organization Details LastModified Time None Recorded Advance Directives Directive None Recorded Payers Insurance Date Sequence Insurance Name Policy Number Policy Paige Covered Member ID Paige Member ID Guarantor Name 12/17/2024 1 [employer] Matt Rehkemper [id number] 1 Enid E Rehkemper 12/17/2024 2 [employer] Enid E Rehkemper [id number] 1 Enid E Rehkemper Notes Date Note Type Note Provider Name and Address Organization Details Recorded Time 12/13/2024 text/html The patient comes in today for physical exam. This is a need for the [facility]. She has a form for us today. She is 35 weeks gestation. She follows with Dr. Quintana. She has not had any complicating factors to the . She has had her Synthroid dose adjusted twice during . She is starting the once weekly visits next week. They told her to get her Tdap vaccination. She has had laboratory work through her livestock slaughterer and compactor driver pretty frequently. She follows with endocrinology, . She has history of Graves' disease and had radioactive iodine ablation. She is now hypothyroid and is typically maintained at a dose of 125 mcg levothyroxine. She has been having frequent thyroid testing during . Her dose was just increased. She has moved to [place], [place]. She has an appointment with new primary care doctor in a couple weeks and she will be requesting records transfer. Baby is moving normally. Lalo Buck PA-C [address] [place] [address], [phone], [facility] 12/15/2024 10:05:44 OBGyn Episode No OBEpisode recorded.
--- OUTSIDE RECORDS SUMMARY | 2025-01-16 17:14 | XMS_ITS | Encounter Summary ---
Author Organization [facility] Address [address] [place] [address] Care Team Providers Care Continuity Director Name Role Phone Rylee Mesa MD Primary Care Provider +1- [phone] Encounter Details Date Type Department Care Team (Latest Contact Info) Description 12/07/2024 Results Follow-Up [facility] Medical Group Diabetes and Endocrinology - [address] [address] Melody Cisneros MD [address] [place] [phone] TSH W/REFLEX, THYROXINE, FREE (FT4) Social History Tobacco Use Types Packs/Day Years [...] Sex Assigned at Female 07/08/2024 3:12 PM GEOLOGIST Legal Sex Female 7:25 PM CDT Gender Identity Not on file Sexual Orientation Not on file documented as of this encounter Plan of Treatment Upcoming Encounters Date Type Department Care Team (Late st Contact Info) Description 02/07/2025 9:40 AM CDT Office Visit Count includes the [facility] [address] [place] [id number] Debra Rodrigues, COMBINATION BUILDING INSPECT[facility] [place] [address] documented as of this encounter Visit Diagnoses Diagnosis Hypothyroidism, postradioiodine therapy Other postablative hypothyroidism documented in this encounter Additional Health Concerns Assessment Noted Time PHQ-9 Depression Total Score: 0 02/17/20 21 9:25 AM CDT documented as of this encounter Care Teams Continuity Director Relationship Specialty [place] [address] [place] [address] PCP - General INTERNAL MEDICINE 01/14/20 documented as of this encounter
[2025-01-16] MEDS: fentaNYL CITRATE INJ (*CRX) 100 MCG/2 ML VIAL IV PUSH (17:42)
[2025-01-16] MEDS: OXYTOCIN 30 UNITS/NS 500 ML 30 UNITS/500 ML BAG 999 UNITS IV CONT (17:50)
[2025-01-16 18:16] LABS: Hematocrit 46.2 % (37.0-47.0); Hemoglobin 15.1 g/dL (12.0-15.0); Immature Granulocyte Percent A 2.1 % (0-0.5); Lymphocytes Absolute Auto 2.58 K/mm3 (0.9-3.2); Mean Corpuscular HGB Conc 32.7 g/dl (32-36); Mean Corpuscular Hemoglobin 30.1 pg (26-34); Mean Corpuscular Volume 92.0 fl (80-100); Nucleated Red Blood Cells Absolute Auto 0.000 K/mm3 (0.0-0.012); Nucleated Red Blood Cells Perc 0.0 % (0.0-0.2); Platelet Count Result 275 k/mm3 (150-375); Red Blood Count 5.02 M/mm3 (4.2-5.4); White Blood Count 15.9 K/mm3 (4.5-10.0)
--- NOTE | 2025-01-16 18:19 | WPDHPUPDATE1 ---
History and Physical Update Update Date/Time: 01/16/25 18:19 History and Physical has been reviewed, including an updated exam of the patient. There are NO changes in the patient's condition. Risks, benefits, and alternatives have been discussed and questions answered. Patient agrees to proceed with procedure.
--- NOTE | 2025-01-16 18:20 | WPDOBADMIT ---
Obstetrics - Admit Note Admission Note: record reviewed. No pertinent additions to the history and/or any subsequent changes in the physical findings that are not consistent with the expected course of the were found. Additions to the history and/or subsequent changes in the physical findings follow. None.
--- NOTE | 2025-01-16 18:20 | PM.OBPRVD ---
OB - Vaginal Delivery Note Procedure Delivery date: 01/16/25 Delivery monitor: External FHT and External Uterine Route of delivery: Episiotomy description: None Laceration Description: Perineal - 1st Degree Delivery repair: chromic Specimen: Yes Quantitative Blood Loss (ml): 500 Anesthesia type: Local Disposition: Floor Complications: No immediate complications Narrative: Patient prepped and draped usual manner for this procedure. Maternal expulsive efforts delivered vertex the rest of baby was delivered without difficulty. Cord clamped cut and placenta delivered spontaneously. Cervix vagina vulva were inspected with vaginal laceration which was approximated using 2-0 chromic in a running interlocking manner once injected with lidocaine. This was not bleeding and the uterus was well contracted. Immediate postoperative condition of mother baby were both excellent. Baby Gestational Age by Date: 40 gender: Male Weight (pounds): 10 Weight (ounces): 8 presentation: vertex Placenta delivery description: Spontaneous Cord Vessel Description: 3 Vessels
[2025-01-16] MEDS: OXYTOCIN 30 UNITS/NS 500 ML 30 UNITS/500 ML BAG 125 UNITS IV CONT (18:25)
[2025-01-16 18:54] LABS: Syphilis IgG/IgM Antibody Non-Reactive (Nonreactive)
--- OUTSIDE RECORDS SUMMARY | 2025-01-16 18:58 | XMS_ITS | Encounter Summary ---
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 AND 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 Legal Sex Female 7:25 PM CDT Gender Identity Not on file Sexual Orientation Not on file documented as of this encounter Plan of Treatment Upcoming Encounters Date Type Department Care Team (Late st Contact Info) Description 02/07/2025 9:40 AM CDT Office Visit [facility] [address] [place] [phone] Debra Rodrigues, HE[facility]ING [facility]ID [facility] [place] [address] documented as of this encounter Visit Diagnoses Diagnosis Hypothyroidism, postradioiodine therapy Other postablative hypothyroidism documented in this encounter Additional Health Concerns Assessment Noted Time PHQ-9 Depression Total Score: 0 02/17/20 21 9:25 AM CDT documented as of this encounter Care Teams Licensed Customs Broker Relationship Specialty [place] [address] [place] [address] PCP - General INTERNAL MEDICINE 01/14/20 documented as of this encounter
--- OUTSIDE RECORDS SUMMARY | 2025-01-16 18:58 | XMS_ITS | Clinical Summary ---
Author Organization [facility] Address [facility] [place] [address] Care Team Providers Care Optimization Analyst Name Role Phone Rylee Mesa MD Primary Care Provider +1- [phone] Allergies No known active allergies Medications FLUoxetine [...] Care Team Description 01/05/2025 MyChart Message Enc [facility] Medical Group Diabetes and Endocrinology - [address] [address] Melody Cisneros MD Levothyroxine 125 Refill 12/25/[address] [place] [address] Debra Rodrigues FNP Error 12/07/2024 4:13 PM CDT - 12/07/2024 11:59 PM CDT Hospital Encounter [facility] [address] [place] [address] Melody Cisneros MD Discharge Disposition: Home or Self Care (Routine Discharge) 12/07/2024 Results Follow-Up [facility] Diabetes and Endocrinology - [address] [address] Melody Cisneros MD TSH W/REFLEX, THYROXINE, FREE (FT4) 12/07/2024 Travel 10/26/2024 3:10 PM CDT - 10/26/2024 11:59 PM CDT Hospital Encounter [facility] [address] [place] [address] Melody Cisneros MD Discharge Disposition: Home or Self Care (Routine Discharge) 10/26/2024 Results Follow-Up [facility] Diabetes and Endocrinology - [address] [address] Melody Cisneros MD THYROID STIM HORMONE TSH 10/26/2024 Travel 10/25/2024 Telephone [facility] Diabetes and Endocrinology [address] [address] Melody Cisneros MD Lab Order from Last [...] Sex Assigned at Female 07/08/2024 3:12 PM BELL PERSON Legal Sex Female 7:25 PM CDT Gender Identity Not on file Sexual Orientation Not on file Last Filed Vital Signs Vital Sign Reading Time Taken Comments Blood Pressure 108/74 02/07/2023 10:55 AM CDT Pulse 76 02/07/2023 10:55 AM CDT Temperature 36.5 C (97.7 F) 02/07/2023 10:55 AM CDT Respiratory Rate 16 06/01/2021 9:58 AM BELL PERSON Oxygen Saturation 98% 02/07/2023 10:55 AM CDT Inhaled Oxygen Concentration - - Weight 93.4 kg (206 lb) 02/07/2023 10:55 AM CDT Height 175.3 cm (5' 9) 02/07/2023 10:55 AM CDT Body Mass Index 30.42 02/07/2023 10:55 AM CDT Plan of Treatment Upcoming Encounters Date Type Department Care Team (Late st Contact Info) Description 02/07/2025 9:40 AM CDT Office Visit [facility] [address] [place], [place] [phone] Debra Rodrigues [facility] [address] [place] [address] Health Maintenance Due Date Last Done Comments [...] 2023- season) 2024 08/11/2020, 07/14/2020 PHQ-2 (Physician [place]) 06/23/2024 RSV Immunization or 60+ Years (1 [...] - 3.74 uIU/ML 12/07/2024 5:16 PM CDT [facility] Comment: HIGH DOSES OF BIOTIN MAY INTERFERE WITH THIS TEST RESULT. CORRELATION TO CLINICAL HISTORY AND PRESENTATION RECOMMENDED. 12/07/2024 4:15 PM CDT us Melody Cisneros MD LABORATORY Final Result [facility] [address] [place] [address], * THYROXINE, FREE (FT4) (12/07/2024 4:15 PM CDT) FREE T4 1.01 0.76 - 1.46 NG/DL 12/07/2024 6:05 PM CDT [facility] 12/07/2024 4:15 PM CDT Melody Cisneros MD LABORATORY Final Result Performing Organization Address City/[facility]/ZIP Co de Phone Number [facility] [address] [place] [address], [place] [phone] * THYROID STIM HORMONE TSH (10/26/2024 3:13 PM CDT) TSH 2.475 0.358 - 3.74 uIU/ML 10/26/2024 4:37 PM CDT [facility] Comment: HIGH DOSES OF BIOTIN MAY INTERFERE WITH THIS TEST RESULT. CORRELATION TO CLINICAL HISTORY AND PRESENTATION RECOMMENDED. 10/26/2024 3:13 PM CDT Melody Cisneros MD LABORATORY Final Result Performing Organization Address [facility] Co de Phone Number [facility] [address] [place] [address], [place] [phone] from Last 3 Months Insurance [employer] Advance Directives * Full Code (Latest Code Status on File) Date Activated Date Inactivated Comments 06/01/2021 8:28 AM 06/01/2021 12:26 PM Care Teams Optimization Analyst Relationship Specialty [place] [address] [place] [address] PCP - General INTERNAL MEDICINE 01/14/20
--- NOTE | 2025-01-16 20:56 | OBPPTRN ---
Patient transferred to post room #283 via wheelchair. Support person present. Oriented to unit, room, information board, rooming in, admission packet and security measures. Patient verbalizes understanding.
[2025-01-17] MEDS: IBUPROFEN 600 MG TABLET PO ×2 (01:02→08:05)
[2025-01-17 04:50] LABS: Hematocrit 34.7 % (37.0-47.0); Hemoglobin 11.5 g/dL (12.0-15.0)
[2025-01-17 07:25] VITALS: BP 107/71; PULSE 74; RESP 16; TEMP 36.5; O2SAT 99
[2025-01-17] MEDS: MULTIVIT/MIN/PREN/FOL AC/IRON TABLET 1 TAB PO (08:04)
[2025-01-17] MEDS: DOCUSATE SODIUM 100 MG CAPSULE PO ×2 (08:04→17:40)
[2025-01-17] MEDS: SERTRALINE HCL 50 MG TABLET PO (08:04)
--- NOTE | 2025-01-17 08:05 | PC.NURSE ---
Consulted with patient to assess needs related to . Discussed with mother her successes, concerns and any questions she has. Per mother first few feedings went great and now baby has been sleepy. We reviewed working with the , supporting breast, protecting her nipples with an optimal deep latch, good positioning, and good hand washing. Encouraged understanding the benefits of skin to skin, responding to feeding cues, frequencies of feeding 8-12 times in 24 hours (approximately 2-3 hours), duration of feedings, milk production, intake/output feeding sheet and signs of adequate intake encouraging swallowing at the breast. Reviewed positioning and alignment, supporting breast, off-centered (asymmetrical latch) and leading with the chin with big, open, wide gape. Infant latched optimally to the [left] breast in [cross cradle] position. Education given to the mother of how to visualize the suckling (with good rocking jaw motion) swallows (dropping of the lower jaw) and how to listen for drinking at the breast (the ka sound). The infant was [able] to maintain latch without discomfort to mother. Nipple care reviewed with optimal latch, good positioning and using clean hands when touching her breast. Resources used to facilitate learning were used from the [visual handouts/ tool/mom and baby guide]. Mother voiced understanding of the education shared, to call for assistance if the does not latch or if there is discomfort with . Reported to the Primary RN.
--- NOTE | 2025-01-17 08:48 | P.PNOB_ITS ---
OB - PN: Subj Subjective Date/time seen: 01/17/25 08:48 Narrative: Pain OK. Would like circumcision for son. OB - PN: Obj Data Labs 01/17/25 04:35 Labs: Laboratory Results - last 24 hr 01/16/25 01/16/25 01/17/25 18:09 18:57 04:35 WBC 15.9 H RBC 5.02 Hgb 15.1 H D 11.5 L D Hct 46.2 34.7 L MCV 92.0 MCH 30.1 MCHC 32.7 RDW 13.4 Plt Count 275 MPV 11.6 H Immature Gran % (Auto) 2.1 H Neut % (Auto) 77.9 H Lymph % (Auto) 16.2 L [place] % (Auto) 3.0 Eos % (Auto) 0.1 Baso % (Auto) 0.7 Lymph # (Auto) 2.58 [place] # (Auto) 0.5 Eos # (Auto) 0.0 Baso # (Auto) 0.1 Abs Immat Gran (auto) 0.34 H Absolute Neuts (auto) 12.4 H Absolute Nucleated RBC 0.000 Nucleated RBC % 0.0 Syphilis IgG/IgM Ab Non-reactive Blood Type A Negative Antibody Screen Negative OB - PN A/P Plan day: 1 Comments: A: PPD#1, doing well. P: Routine care. Reviewed circ. Plan home tomorrow. Exam 2 Psych: Other: AVSS ABD soft, nontender, fundus firm EXT nontender
[2025-01-17 12:43] VITALS: BP 113/76; PULSE 65; RESP 16; TEMP 36.6; O2SAT 99
--- NOTE | 2025-01-17 13:57 | PC.NURSE ---
1230. Introductions were made, then consulted with patient to assess needs related to . Discussed with mother her plans to feed her and the experience so far. had some tachypnea early this morning & has been in level 2 nursery since then. Mom reports she has been able to go down to breastfeed twice so far and has been able to latch infant independently. She reports infant has been sleepy and struggles to maintain the latch thru the entire feeding, but she has been able to relatch and stimulate him to suck. She reports some mild discomfort with feeding but no pain. Advised her to call out for a latch check with infants next feeding or if she needs assistance waking or positioning baby to give a call. We discussed moms medications she takes regularly and she states she takes levothyroxine for hypothyroidism and zoloft. She states she did breastfeed her 2 year old for 10 months and did not notice a decrease in milk supply with him. Mom declined the need for a [facility] follow up service at discharge. Reviewed the blue feeding worksheet for required output and feeding at least 8-12 times every 24 hours. Resources provided for inpatient and outpatient services with the feeding sheet, mom/baby guide, and name/number written on the communication board. Mother voiced understanding of information and will call if there is a request for assistance. Reported to the Primary RN?
--- NOTE | 2025-01-17 17:02 | PC.NURSE ---
1700. Assisted mom with latching in the level 2 nursery. Mom reports some tenderness and small blisters on the L nipple. was feeding in the football position, mom is very good at independently latching. does not open his mouth very wide. Worked with mom on aiming her nipple towards the roof of his mouth and pulling his chin down while pressing him on to help achieve a deeper latch. We also reviewed infants head being tilted in the sniffing position, lips flanged out, and no chin dimpling. We reviewed using silverettes, hydrogel pads, and using lanolin. We also discussed the use of a nipple shield, and mom declined the use at this time. She was encouraged to call out for one if she changes her mind to use due to soreness. Mom verbalized understanding and also verbalized that she will call for future feedings if she needs assistance. Reported to the primary RN.
[2025-01-17 20:07] VITALS: BP 111/68; PULSE 77; RESP 16; TEMP 36.8; O2SAT 97
[2025-01-18 07:10] VITALS: BP 109/69; PULSE 69; RESP 16; TEMP 37.1; O2SAT 97
--- NOTE | 2025-01-18 07:30 | PC.NURSE ---
Mother called out for assistance. She has baby awake and in the cross cradle hold on the right breast. She states that they tried to use the football hold on the left breast but baby was not able to latch. It took several attempts for baby to get a latch he could maintain, but once he did he was suckling and swallowing consistently. Baby was gulping and seemed to be transferring a good volume of milk. Baby does not open his mouth very wide and tends to have his bottom lip rolled in. Mom knows to check his lip and pull on his chin if needed to pop the lower lip out. She has latch on tenderness that dissipates some as baby nurses. We attempted to compress the breast and get more tissue into his mouth. Mom works very well with baby and has good experience. She is aware that she may call out at any or all feeds if needed and we can check her latch or assist with waking and positioning. Primary RN updated.
--- NOTE | 2025-01-18 08:51 | P.PNOB_ITS ---
OB - PN: Subj Subjective Date/time seen: 01/18/25 08:51 Narrative: Pain OK. Would like to go home. OB - PN: Obj Data Labs 01/17/25 04:35 OB - PN A/P Plan Comments: A: PPD#2, doing well. P: Home to f/u 6 weeks. Exam 2 Psych: Other: AVSS ABD soft, nontender, fundus firm EXT nontender
--- NOTE | 2025-01-18 08:52 | P.DS_ITS ---
DS: Admitting Diagnosis Discharge Date 01/18/25 Admitting Diagnosis IUP at 40 weeks Labor DS: Discharge Diagnosis Discharge Diagnosis (1) (normal spontaneous vaginal delivery): Code(s): O80 - Encounter for full-term uncomplicated delivery Status: Acute OB - DS: Summary OB Procedures : None OB Procedures Intrapartum: Spontaneous Vag Delivery OB Procedures: : None Peripartum Data Laceration Description: Perineal - 1st Degree Episiotomy description: None Time Spent with Patient Time attestation: Total time spent providing and/or coordinating discharge services: Discharge Plan Discharge Attending physician on discharge: Zoltan Quintana Discharging Clinician: Zoltan Quintana Patient Disposition: Home Activity: pelvic rest Diet: regular Discharge Instructions: Call or return if temperature above 100.4? F, increased abdominal pain, increased vaginal bleeding or any new problems. Patient Language: Bhut[place] Stand Alone Forms: General Discharge Information Follow-up/Referrals: Zoltan Quintana MD [Physician] - 6 Weeks Discharge Medications: New ibuprofen 600 mg tablet 600 mg PO Q6H PRN (Reason: cramps) Qty: 30 0RF Continued levothyroxine 175 mcg capsule 175 mcg PO DAILY sertraline [Zoloft] 50 mg tablet 50 mg PO DAILY prenat.vits,elaine,vei-bhaj-diuvt Tablet 1 tablet Date of admission: 01/16/25 16:55 Primary Care Provider: UNKNOWN,DOCTOR Admitting Provider: Zoltan Quintana Attending physician on admission: Zoltan Quintana Condition: Stable
[2025-01-18] MEDS: SERTRALINE HCL 50 MG TABLET PO (09:21)
[2025-01-18] MEDS: MULTIVIT/MIN/PREN/FOL AC/IRON TABLET 1 TAB PO (09:21)
--- NOTE | 2025-01-18 15:00 | PC.NURSE ---
Pt made a NCB, baby has to stay for further evaluation. Supplies given and discharge instructions given
[2025-01-20 11:24] VITALS: BP 111/64; PULSE 75; RESP 18; TEMP 36.9; O2SAT 99
== END 2025-01-18 15:00 | disposition home or self-care (01) | DRG 807 ==
LOC: ANHLDR 18:57 → ANHOB2 21:01
PROVIDERS: Admitting Provider Obstetrics & Gynecology; Visit Provider Obstetrics & Gynecology
DX: O70.0 First degree perineal laceration during delivery (principal); Z37.0 Single live birth; Z3A.40 40 weeks gestation of pregnancy
CPT/HCPCS: 36415; 85014; 85018; 85025; 86593; 86850; 86900; 86901; A9270; J2590; J3010